=== PATIENT | male | born 1975 | race Caucasian/White ===

== ENCOUNTER 2021-05-17 16:12 | Emergency (ER) | payer OTHER ==
[~2021-05-17] VITALS: Ht 170.2 cm; Wt 90.3 kg
--- NOTE | 2021-05-17 16:12 | NUR ---
PT TAKEN TO C BY [facility]IN[facility].
[2021-05-17 16:14] VITALS: BP 141/77
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
[2021-05-17] MEDS ORDERED: BACITRACIN OINT 500 UNITS/GM PKT TP ONE ×2 (16:25→16:29)
[2021-05-17 16:39] VITALS: BP 141/77
--- NOTE | 2021-05-17 16:40 | NUR ---
PATIENT BIB [facility] [employer]. PATIENT EXAMINED BY DR. CABA. PATIENT MEDICALLY CLEARED AND RELEASED IN CUSTODY IN STABLE CONDITION. ORIGINAL PRE-BOOK FORM GIVEN TO OFFICER LETY.
== END 2021-05-17 16:39 ==
LOC: MED 16:12
DX: M79.642 Pain in left hand (principal); Z02.89 Encounter for other administrative examinations; W39.XXXA Discharge of firework, initial encounter; Y93.89 Activity, other specified; Y92.89 Other specified places as the place of occurrence of the external cause; Y99.8 Other external cause status
CPT/HCPCS: 99283